=== PATIENT | male | born 1985 | race Two or more races ===

== ENCOUNTER 2024-04-08 08:12 | Inpatient (IN) | payer OTHER ==
[2024-04-08 09:15] LABS: BASO % 0.7 % (0-2.0); EOS % 0.1 % (0-4.5); HEMATOCRIT 36.8 % (35.4-49); LYMPH % 12.2 % (8-40); MCH 27.3 pg (25.7-33.7); MCHC 27.2 g/dl (32.0-35.9); MEAN CELL VOLUME 100.5 fl (80-96); MONO % 8.7 % (3.8-10.2); NEUT % 78.3 % (42.8-82.8); PLATELET COUNT 232 10^3/uL (134-434); RBC 3.66 M/mm3 (4.00-5.60); RDW 17.7 % (11.9-15.9); WHITE BLOOD COUNT 9.8 K/mm3 (4.0-10.0)
[2024-04-08 09:16] LABS: VENOUS BASE EXCESS -30.5 mmol/L (-2-2); VENOUS O2 SATURATION 79.3 % (70-80); VENOUS PCO2 31.9 mmHg (38-52)
[2024-04-08 09:21] LABS: VENOUS PH 6.744 (7.310-7.410)
[2024-04-08 09:45] LABS: LACTIC ACID 2.2 mmol/L (0.4-2.0)
[2024-04-08 09:46] LABS: CHLORIDE 98 mmol/L (98-107); SODIUM 122 mmol/L (136-145)
[2024-04-08] MEDS ORDERED: ACETAMINOPHEN INJECTION 0 ML ONE (09:46)
[2024-04-08 09:48] LABS: ALBUMIN 3.4 g/dl (3.4-5.0); ANION GAP 19 mmol/L (4-13); BLOOD UREA NITROGEN 94.6 mg/dL (7-18); CALCIUM 8.1 mg/dL (8.5-10.1); CO2 6 mmol/L (21-32); MAGNESIUM 3.1 mg/dL (1.8-2.4); POTASSIUM 6.9 mmol/L (3.5-5.1)
[2024-04-08 09:51] LABS: SGOT/AST 12 U/L (15-37); SGPT/ALT 27 U/L (13-61)
[2024-04-08 09:52] LABS: CREATININE 17.3 mg/dL (0.55-1.3)
[2024-04-08 09:53] LABS: BILIRUBIN,TOTAL 0.5 mg/dL (0.2-1); TOT PROT 6.6 g/dl (6.4-8.2)
[2024-04-08 09:54] LABS: ALK PHOS 204 U/L (45-117)
[2024-04-08 09:57] LABS: GLUCOSE,RANDOM 1366 mg/dL (74-106)
[2024-04-08] MEDS ORDERED: CALCIUM GLUCONATE 10% - 1,000 MG/10 ML VIAL ONE (10:05)
[2024-04-08] MEDS ORDERED: SODIUM BICARBONATE 8.4% 50 MEQ/50 ML DISP.SYRIN ONE (10:05)
[2024-04-08] MEDS ORDERED: ALBUTEROL SO4 0.083% IH SOL 2.5 MG/3 ML VIAL.NEB. NEB ONE (10:05)
[2024-04-08] MEDS ORDERED: INSULIN REGULAR HUMAN 100 UNITS/ML *VIAL ONE (10:06)
[2024-04-08] MEDS: ALBUTEROL SO4 0.083% IH SOL 2.5 MG/3 ML VIAL.NEB. NEB SCH (10:22)
[2024-04-08] MEDS: CALCIUM GLUCONATE 10% - 1,000 MG/10 ML VIAL IVPB ONE (10:22)
[2024-04-08] MEDS: SODIUM BICARBONATE 8.4% 50 MEQ/50 ML DISP.SYRIN IVPUSH ONE ×2 (10:22→14:58)
[2024-04-08] MEDS: INSULIN REGULAR HUMAN 100 UNITS/ML *VIAL IVPUSH ONE (10:22)
[2024-04-08] MEDS ORDERED: VANCOMYCIN 1 GRAM (PRE-DOCKED) 0 MG/0 ML BAG IVPB ONE (10:32)
[2024-04-08] MEDS ORDERED: VANCOMYCIN 1 GRAM (PRE-DOCKED) 1,000 MG/250 ML BAG IVPB ONE (10:43)
[2024-04-08 11:01] LABS: PHOSPHOROUS 9.6 mg/dL (2.5-4.9)
[2024-04-08] MEDS: INSULIN REGULAR 100 UNITS in SODIUM CHLORIDE 99 ML IVPB SCH (11:15)
[2024-04-08] MEDS ORDERED: SODIUM CHLORIDE 250 ML IV PRN (11:16)
[2024-04-08] MEDS: GENTAMICIN INJECTION 200 MG in DEXTROSE 5%-WATER - 250 ML IVPB ONE (11:25)
[2024-04-08] MEDS ORDERED: DEXTROSE 50%-WATER - 25 GM/50 ML VIAL IVPUSH PRN (11:27)
[2024-04-08] MEDS ORDERED: INSULIN REGULAR 100 UNITS in SODIUM CHLORIDE 99 ML IVPB SCH (11:30)
[2024-04-08] MEDS: SODIUM CHLORIDE 1,000 ML IV SCH (13:00)
[2024-04-08] MEDS ORDERED: DOPAMINE 400 MG/D5W - 400,000 MCG/250 ML INFUS.BAG IVPB ONE (13:02)
[2024-04-08] MEDS: DOPAMINE 400 MG/D5W - 400,000 MCG/250 ML INFUS.BAG IVPB SCH (13:15)
[2024-04-08 13:44] LABS: HEMATOCRIT 33.9 % (35.4-49); HEMOGLOBIN 9.4 GM/dL (11.7-16.9); MCH 27.2 pg (25.7-33.7); MCHC 27.8 g/dl (32.0-35.9); MEAN CELL VOLUME 97.9 fl (80-96); MEAN PLT VOLUME 9.6 fl (7.5-11.1); PLATELET COUNT 215 10^3/uL (134-434); RBC 3.47 M/mm3 (4.00-5.60); RDW 17.3 % (11.9-15.9); WHITE BLOOD COUNT 11.7 K/mm3 (4.0-10.0)
[2024-04-08 13:50] LABS: INR 1.26 (0.83-1.09); PROTHROMBIN TIME (PATIENT) 14.4 SEC (9.7-13.0)
[2024-04-08 13:53] LABS: ACTIVATED PTT 25.5 SECONDS (25.2-36.5)
[2024-04-08 14:03] LABS: CHLORIDE 99 mmol/L (98-107); SODIUM 126 mmol/L (136-145)
[2024-04-08 14:06] LABS: LACTIC ACID 5.6 mmol/L (0.4-2.0)
[2024-04-08 14:07] LABS: ALBUMIN 3.3 g/dl (3.4-5.0); ANION GAP 22 mmol/L (4-13); BLOOD UREA NITROGEN 97.6 mg/dL (7-18); CALCIUM 8.1 mg/dL (8.5-10.1); CO2 6 mmol/L (21-32)
[2024-04-08 14:08] LABS: MAGNESIUM 3.1 mg/dL (1.8-2.4)
[2024-04-08 14:11] LABS: SGOT/AST 14 U/L (15-37); SGPT/ALT 26 U/L (13-61)
[2024-04-08 14:12] LABS: BILIRUBIN,TOTAL 0.5 mg/dL (0.2-1); TOT PROT 6.4 g/dl (6.4-8.2)
[2024-04-08 14:13] LABS: ALK PHOS 198 U/L (45-117)
[2024-04-08 14:15] LABS: CREATININE 17.3 mg/dL (0.55-1.3)
[2024-04-08 14:31] LABS: GLUCOSE,RANDOM 1284 mg/dL (74-106)
[2024-04-08] MEDS: HEPARIN NA (PORCINE) 5,000 UNITS/ML 1ML VIAL SQ SCH (18:27)
[2024-04-08 20:09] LABS: CHLORIDE 108 mmol/L (98-107); SODIUM 139 mmol/L (136-145)
[2024-04-08 20:11] LABS: CALCIUM 7.6 mg/dL (8.5-10.1)
[2024-04-08 20:12] LABS: ALBUMIN 3.1 g/dl (3.4-5.0); CO2 16 mmol/L (21-32); MAGNESIUM 2.2 mg/dL (1.8-2.4)
[2024-04-08 20:15] LABS: PHOSPHOROUS 3.4 mg/dL (2.5-4.9); SGOT/AST 21 U/L (15-37); SGPT/ALT 24 U/L (13-61)
[2024-04-08 20:17] LABS: BILIRUBIN,TOTAL 0.5 mg/dL (0.2-1); TOT PROT 5.7 g/dl (6.4-8.2)
[2024-04-08 20:18] LABS: ALK PHOS 173 U/L (45-117)
[2024-04-08 20:20] LABS: ANION GAP 15 mmol/L (4-13); BLOOD UREA NITROGEN 49.8 mg/dL (7-18); CREATININE 10.2 mg/dL (0.55-1.3); GLUCOSE,RANDOM 638 mg/dL (74-106); POTASSIUM 2.3 mmol/L (3.5-5.1)
[2024-04-08 20:25] LABS: LACTIC ACID 6.7 mmol/L (0.4-2.0)
[2024-04-08 20:26] LABS: ARTERIAL BLD GAS O2 SATURATION 82.9 % (95-98); ARTERIAL BLOOD GAS BASE EXCESS -10.3 mmol/L (-2-2); ARTERIAL BLOOD GAS PO2 53.2 mmHg (80-100); ARTERIAL BLOOD GAS pH 7.258 (7.350-7.450)
[2024-04-08 20:27] LABS: ALLENS TEST POSITIVE
[2024-04-08] MEDS: VANCOMYCIN/WATER FOR INJ (PEG) 1,000 MG/200 ML BAG IVPB ONE (20:40)
[2024-04-08] MEDS: SODIUM BICARBONATE 4.2% 5 MEQ/10 ML DISP.SYRIN IVPUSH ONE (20:40)
[2024-04-08] MEDS: POTASSIUM CHLORIDE ORAL LIQUID 20 MEQ/15 ML PO ONE (20:55)
[2024-04-08] MEDS: KCL 10 MEQ IVPB 10 MEQ/100 ML INFUS.BAG IVPB SCH (20:55)
[2024-04-08] MEDS: CHLORHEXIDINE GLUCONATE 4% CLEANSER FOR DECOLONIZATION TP SCH (21:08)
[2024-04-08] MEDS: MUPIROCIN 2% TOPICAL OINTMENT FOR DECOLONIZATION NS SCH (21:08)
[2024-04-08] MEDS: SODIUM CHLORIDE 0.45%/POT 20 MEQ/1,000 ML INFUS.BAG IV SCH (21:57)
[2024-04-08] MEDS ORDERED: POTASSIUM CHLORIDE ORAL LIQUID 20 MEQ/15 ML PO SCH (22:00)
[2024-04-08] MEDS: SODIUM CHLORIDE 0.9%/KCL 20 MEQ/1,000 ML INFUS.BAG IV SCH (23:17)
[2024-04-09 03:07] LABS: CHLORIDE 110 mmol/L (98-107); SODIUM 132 mmol/L (136-145)
[2024-04-09 03:09] LABS: BLOOD UREA NITROGEN 40.7 mg/dL (7-18); CO2 16 mmol/L (21-32); GLUCOSE,RANDOM 316 mg/dL (74-106)
[2024-04-09 03:12] LABS: SGPT/ALT 18 U/L (13-61)
[2024-04-09 03:13] LABS: SGOT/AST 18 U/L (15-37)
[2024-04-09 03:14] LABS: BILIRUBIN,TOTAL 0.3 mg/dL (0.2-1); TOT PROT 4.3 g/dl (6.4-8.2)
[2024-04-09 03:21] LABS: ALBUMIN 2.3 g/dl (3.4-5.0); ALK PHOS 125 U/L (45-117); ANION GAP 6 mmol/L (4-13); CALCIUM 6.2 mg/dL (8.5-10.1); CREATININE 8.1 mg/dL (0.55-1.3); POTASSIUM 6.5 mmol/L (3.5-5.1)
[2024-04-09] MEDS: SODIUM CHLORIDE 0.45%/POT 20 MEQ/1,000 ML INFUS.BAG IV SCH (04:00)
[2024-04-09 04:11] LABS: CHLORIDE 112 mmol/L (98-107); SODIUM 142 mmol/L (136-145)
[2024-04-09 04:14] LABS: BLOOD UREA NITROGEN 49.4 mg/dL (7-18); CO2 19 mmol/L (21-32); GLUCOSE,RANDOM 334 mg/dL (74-106)
[2024-04-09 04:17] LABS: SGOT/AST 21 U/L (15-37); SGPT/ALT 22 U/L (13-61)
[2024-04-09 04:18] LABS: BILIRUBIN,TOTAL 0.4 mg/dL (0.2-1); TOT PROT 5.3 g/dl (6.4-8.2)
[2024-04-09 04:20] LABS: ALK PHOS 154 U/L (45-117)
[2024-04-09 04:22] LABS: ALBUMIN 2.8 g/dl (3.4-5.0); ANION GAP 10 mmol/L (4-13); CALCIUM 7.8 mg/dL (8.5-10.1); CREATININE 10.4 mg/dL (0.55-1.3); POTASSIUM 2.8 mmol/L (3.5-5.1)
[2024-04-09] MEDS: CALCIUM GLUCONATE IN NACL 1 GM/50 ML BAG IVPB ONE (04:31)
[2024-04-09] MEDS: KCL 10 MEQ IVPB 10 MEQ/100 ML INFUS.BAG IVPB SCH (04:48)
[2024-04-09] MEDS: SODIUM CHLORIDE 0.45% 1,000 ML IV SCH (04:49)
[2024-04-09 06:56] LABS: CHLORIDE 114 mmol/L (98-107); SODIUM 142 mmol/L (136-145)
[2024-04-09 07:01] LABS: ALBUMIN 2.7 g/dl (3.4-5.0); ANION GAP 9 mmol/L (4-13); CALCIUM 7.4 mg/dL (8.5-10.1); CO2 19 mmol/L (21-32)
[2024-04-09 07:02] LABS: BLOOD UREA NITROGEN 48.7 mg/dL (7-18); GLUCOSE,RANDOM 202 mg/dL (74-106); MAGNESIUM 1.9 mg/dL (1.8-2.4)
[2024-04-09 07:04] LABS: SGPT/ALT 24 U/L (13-61)
[2024-04-09 07:05] LABS: PHOSPHOROUS 2.8 mg/dL (2.5-4.9); SGOT/AST 21 U/L (15-37)
[2024-04-09 07:06] LABS: BILIRUBIN,TOTAL 0.4 mg/dL (0.2-1); TOT PROT 5.1 g/dl (6.4-8.2)
[2024-04-09 07:07] LABS: ALK PHOS 150 U/L (45-117)
[2024-04-09 07:12] LABS: CREATININE 10.3 mg/dL (0.55-1.3)
[2024-04-09 09:18] LABS: CHLORIDE 114 mmol/L (98-107); POTASSIUM 3.3 mmol/L (3.5-5.1); SODIUM 142 mmol/L (136-145)
[2024-04-09 09:21] LABS: ANION GAP 8 mmol/L (4-13); CALCIUM 7.5 mg/dL (8.5-10.1); CO2 19 mmol/L (21-32)
[2024-04-09 09:22] LABS: BLOOD UREA NITROGEN 46.8 mg/dL (7-18); GLUCOSE,RANDOM 153 mg/dL (74-106)
[2024-04-09 09:26] LABS: CREATININE 10.3 mg/dL (0.55-1.3)
[2024-04-09 09:53] LABS: HEMATOCRIT 25.8 % (35.4-49); HEMOGLOBIN 8.7 GM/dL (11.7-16.9); MCH 27.7 pg (25.7-33.7); MCHC 33.7 g/dl (32.0-35.9); MEAN CELL VOLUME 82.3 fl (80-96); MEAN PLT VOLUME 8.4 fl (7.5-11.1); PLATELET COUNT 154 10^3/uL (134-434); RBC 3.13 M/mm3 (4.00-5.60); RDW 15.6 % (11.9-15.9); WHITE BLOOD COUNT 9.1 K/mm3 (4.0-10.0)
[2024-04-09] MEDS ORDERED: INSULIN ASPART SLIDING SCALE (NOVOLOG) 1 VIAL SQ SCH (11:00)
[2024-04-09] MEDS: LOPERAMIDE HCL 2 MG CAPSULE PO ONE (16:12)
[2024-04-09] MEDS: INSULIN ASPART SLIDING SCALE (NOVOLOG) 1 VIAL SQ SCH (16:15)
[2024-04-09] MEDS: INSULIN (LEVEMIR) 100 UNITS/ML UNITS SQ SCH (22:46)
[2024-04-10] MEDS: SODIUM CHLORIDE 0.45%/POT 20 MEQ/1,000 ML INFUS.BAG IV SCH (02:31)
[2024-04-10] MEDS: HEPARIN NA (PORCINE) 5,000 UNITS/ML 1ML VIAL SQ SCH (06:05)
[2024-04-10] MEDS: INSULIN ASPART SLIDING SCALE (NOVOLOG) 1 VIAL SQ SCH ×2 (06:13→16:27)
[2024-04-10] MEDS: INSULIN (LEVEMIR) 100 UNITS/ML UNITS SQ SCH (06:59)
[2024-04-10 07:32] LABS: HEMATOCRIT 27.4 % (35.4-49); HEMOGLOBIN 9.3 GM/dL (11.7-16.9); MCH 28.3 pg (25.7-33.7); MCHC 33.9 g/dl (32.0-35.9); MEAN CELL VOLUME 83.5 fl (80-96); MEAN PLT VOLUME 8.7 fl (7.5-11.1); PLATELET COUNT 140 10^3/uL (134-434); RBC 3.29 M/mm3 (4.00-5.60); WHITE BLOOD COUNT 9.3 K/mm3 (4.0-10.0)
[2024-04-10 07:51] LABS: CHLORIDE 114 mmol/L (98-107); POTASSIUM 4.8 mmol/L (3.5-5.1); SODIUM 136 mmol/L (136-145)
[2024-04-10 07:58] LABS: ALBUMIN 2.7 g/dl (3.4-5.0); BLOOD UREA NITROGEN 55.8 mg/dL (7-18); SGOT/AST 20 U/L (15-37); SGPT/ALT 22 U/L (13-61)
[2024-04-10 07:59] LABS: ANION GAP 8 mmol/L (4-13); CALCIUM 7.2 mg/dL (8.5-10.1); CO2 14 mmol/L (21-32); GLUCOSE,RANDOM 111 mg/dL (74-106); MAGNESIUM 1.8 mg/dL (1.8-2.4)
[2024-04-10 08:00] LABS: BILIRUBIN,TOTAL 0.4 mg/dL (0.2-1); TOT PROT 5.2 g/dl (6.4-8.2)
[2024-04-10 08:01] LABS: ALK PHOS 139 U/L (45-117)
[2024-04-10 08:02] LABS: PHOSPHOROUS 3.7 mg/dL (2.5-4.9)
[2024-04-10 08:09] LABS: CREATININE 11.2 mg/dL (0.55-1.3)
[2024-04-10] MEDS ORDERED: MUPIROCIN 2% TOPICAL OINTMENT FOR DECOLONIZATION NS SCH (10:00)
[2024-04-10] MEDS ORDERED: SODIUM CHLORIDE 250 ML IV PRN (10:00)
[2024-04-10] MEDS ORDERED: NIFEdipine E.R 60 MG TABLET PO SCH (10:00)
[2024-04-10] MEDS: NIFEdipine E.R 60 MG TABLET PO SCH (10:10)
[2024-04-10] MEDS: EPOETIN ALFA-EPBX 10,000 UNIT/ML VIAL IVPUSH ONE (10:19)
[2024-04-10] MEDS: DEXTROSE 50%-WATER 25 GM/50 ML DISP.SYRIN IVPUSH PRN (10:30)
[2024-04-10] MEDS: DEXTROSE 5%-0.45% SALINE 1,000 ML IV SCH (11:17)
[2024-04-10] MEDS: LABETALOL HCL 100 MG TABLET (FP) PO SCH (11:18)
[2024-04-10] MEDS: VANCOMYCIN ORAL SOLUTION 125 MG/2.5 ML PO SCH (17:43)
[2024-04-10] MEDS ORDERED: CHLORHEXIDINE GLUCONATE 4% CLEANSER FOR DECOLONIZATION TP SCH (22:00)
[2024-04-11] MEDS: hydrALAZINE HCL 20 MG/ML VIAL IVPB ONE (05:52)
[2024-04-11] MEDS ORDERED: LABETALOL HCL 100 MG TABLET (FP) PO SCH (07:46)
[2024-04-11 07:47] LABS: HEMATOCRIT 27.6 % (35.4-49); HEMOGLOBIN 8.6 GM/dL (11.7-16.9); MCH 27.3 pg (25.7-33.7); MCHC 31.3 g/dl (32.0-35.9); MEAN CELL VOLUME 87.3 fl (80-96); MEAN PLT VOLUME 9.1 fl (7.5-11.1); PLATELET COUNT 104 10^3/uL (134-434); RBC 3.17 M/mm3 (4.00-5.60); RDW 16.3 % (11.9-15.9); WHITE BLOOD COUNT 5.9 K/mm3 (4.0-10.0)
[2024-04-11 07:59] LABS: CHLORIDE 98 mmol/L (98-107); POTASSIUM 4.2 mmol/L (3.5-5.1); SODIUM 130 mmol/L (136-145)
[2024-04-11 08:02] LABS: CALCIUM 7.3 mg/dL (8.5-10.1)
[2024-04-11 08:03] LABS: ALBUMIN 2.8 g/dl (3.4-5.0); ANION GAP 18 mmol/L (4-13); BLOOD UREA NITROGEN 46.8 mg/dL (7-18); CO2 13 mmol/L (21-32)
[2024-04-11 08:06] LABS: SGOT/AST 21 U/L (15-37); SGPT/ALT 26 U/L (13-61)
[2024-04-11 08:08] LABS: ALK PHOS 159 U/L (45-117); BILIRUBIN,TOTAL 0.6 mg/dL (0.2-1); TOT PROT 5.6 g/dl (6.4-8.2)
[2024-04-11] MEDS: INSULIN (LEVEMIR) 100 UNITS/ML UNITS SQ ONE (08:17)
[2024-04-11] MEDS: LABETALOL HCL 200 MG TABLET (FP) PO ONE (08:18)
[2024-04-11] MEDS: NIFEdipine E.R 60 MG TABLET PO ONE (08:18)
[2024-04-11 08:28] LABS: CREATININE 8.4 mg/dL (0.55-1.3); GLUCOSE,RANDOM 661 mg/dL (74-106)
[2024-04-11] MEDS ORDERED: INSULIN (LEVEMIR) 100 UNITS/ML UNITS SQ SCH (10:00)
[2024-04-11 10:40] LABS: CALCIUM 7.3 mg/dL (8.5-10.1); CHLORIDE 100 mmol/L (98-107); POTASSIUM 3.9 mmol/L (3.5-5.1); SODIUM 130 mmol/L (136-145)
[2024-04-11 10:41] LABS: ANION GAP 12 mmol/L (4-13); BLOOD UREA NITROGEN 51.2 mg/dL (7-18); CO2 18 mmol/L (21-32)
[2024-04-11] MEDS: SODIUM CHLORIDE 1,000 ML IV STA (10:46)
[2024-04-11] MEDS: NIFEdipine E.R 60 MG TABLET PO SCH (10:47)
[2024-04-11] MEDS: INSULIN REGULAR HUMAN 100 UNITS/ML *VIAL IVPUSH ONE (10:48)
[2024-04-11 10:56] LABS: CREATININE 8.8 mg/dL (0.55-1.3); GLUCOSE,RANDOM 560 mg/dL (74-106)
[2024-04-11] MEDS: SODIUM CHLORIDE 1,000 ML IV SCH (11:53)
[2024-04-11] MEDS: INSULIN (NOVOLOG) ASPART 100 UNITS/ML 10ML VIAL SQ ONE (12:16)
[2024-04-11 13:28] LABS: PHOSPHOROUS 3.2 mg/dL (2.5-4.9)
[2024-04-11 16:15] LABS: CALCIUM 7.2 mg/dL (8.5-10.1); CHLORIDE 105 mmol/L (98-107); POTASSIUM 3.5 mmol/L (3.5-5.1); SODIUM 133 mmol/L (136-145)
[2024-04-11 16:16] LABS: ANION GAP 9 mmol/L (4-13); BLOOD UREA NITROGEN 50.6 mg/dL (7-18); CO2 19 mmol/L (21-32); GLUCOSE,RANDOM 205 mg/dL (74-106)
[2024-04-11 16:20] LABS: CREATININE 9.2 mg/dL (0.55-1.3)
[2024-04-11] MEDS: LABETALOL HCL 100 MG TABLET (FP) PO SCH (21:31)
[2024-04-12] MEDS: INSULIN (LEVEMIR) 100 UNITS/ML UNITS SQ SCH (06:28)
[2024-04-12 07:23] LABS: BASO % 0.9 % (0-2.0); EOS % 5.7 % (0-4.5); HEMATOCRIT 25.9 % (35.4-49); HEMOGLOBIN 8.4 GM/dL (11.7-16.9); LYMPH % 21.9 % (8-40); MCH 27.5 pg (25.7-33.7); MCHC 32.5 g/dl (32.0-35.9); MEAN CELL VOLUME 84.5 fl (80-96); MEAN PLT VOLUME 8.2 fl (7.5-11.1); MONO % 8.8 % (3.8-10.2); NEUT % 62.7 % (42.8-82.8); PLATELET COUNT 116 10^3/uL (134-434); RBC 3.06 M/mm3 (4.00-5.60); RDW 16.1 % (11.9-15.9); WHITE BLOOD COUNT 7.3 K/mm3 (4.0-10.0)
[2024-04-12 07:30] LABS: CHLORIDE 104 mmol/L (98-107); POTASSIUM 4.1 mmol/L (3.5-5.1); SODIUM 131 mmol/L (136-145)
[2024-04-12 07:34] LABS: ALBUMIN 2.7 g/dl (3.4-5.0); ANION GAP 12 mmol/L (4-13); BLOOD UREA NITROGEN 57.7 mg/dL (7-18); CALCIUM 7.4 mg/dL (8.5-10.1); CO2 15 mmol/L (21-32); GLUCOSE,RANDOM 287 mg/dL (74-106); MAGNESIUM 1.9 mg/dL (1.8-2.4)
[2024-04-12 07:37] LABS: PHOSPHOROUS 3.1 mg/dL (2.5-4.9); SGOT/AST 19 U/L (15-37); SGPT/ALT 21 U/L (13-61)
[2024-04-12 07:39] LABS: TOT PROT 5.3 g/dl (6.4-8.2)
[2024-04-12 07:41] LABS: ALK PHOS 139 U/L (45-117); BILIRUBIN,TOTAL 0.7 mg/dL (0.2-1)
[2024-04-12 08:14] LABS: CREATININE 9.9 mg/dL (0.55-1.3)
[2024-04-12] MEDS ORDERED: NIFEdipine E.R 60 MG TABLET PO SCH (10:00)
[2024-04-12] MEDS: ATORVASTATIN CA 40 MG TABLET (FP) PO SCH (21:14)
[2024-04-13] MEDS ORDERED: SODIUM CHLORIDE 250 ML IV PRN (15:02)
[2024-04-13] MEDS: HEPARIN NA (PORCINE) 5,000 UNITS/ML 1ML VIAL IVPUSH ONE (15:20)
[2024-04-13 15:54] LABS: HEMATOCRIT 26.5 % (35.4-49); HEMOGLOBIN 8.5 GM/dL (11.7-16.9); MCH 26.7 pg (25.7-33.7); MEAN CELL VOLUME 83.4 fl (80-96); PLATELET COUNT 189 10^3/uL (134-434); RBC 3.17 M/mm3 (4.00-5.60); RDW 16.2 % (11.9-15.9)
[2024-04-13 16:15] LABS: CHLORIDE 107 mmol/L (98-107); POTASSIUM 4.1 mmol/L (3.5-5.1); SODIUM 132 mmol/L (136-145)
[2024-04-13 16:16] LABS: CALCIUM 7.5 mg/dL (8.5-10.1)
[2024-04-13] MEDS: EPOETIN ALFA-EPBX 10,000 UNIT/ML VIAL SQ ONE (16:16)
[2024-04-13 16:17] LABS: ANION GAP 11 mmol/L (4-13); BLOOD UREA NITROGEN 67.7 mg/dL (7-18); CO2 15 mmol/L (21-32); GLUCOSE,RANDOM 177 mg/dL (74-106)
[2024-04-13 16:31] LABS: CREATININE 12.2 mg/dL (0.55-1.3)
[2024-04-13] MEDS: LACTOBACILLUS ACIDOPHILUS 1 TABLET PO SCH ×2 (19:05→21:58)
[2024-04-13 22:08] VITALS: BMI 21.4
[2024-04-13] MEDS: HEPARIN NA (PORCINE) 5,000 UNITS/ML 1ML VIAL SQ SCH (22:59)
[2024-04-14] MEDS: hydrALAZINE HCL 20 MG/ML VIAL IVPUSH ONE (03:18)
[2024-04-14] MEDS: BANATROL PLUS POWDER PACKET PO SCH ×2 (07:11→21:44)
[2024-04-14 08:03] LABS: CHLORIDE 105 mmol/L (98-107); POTASSIUM 3.9 mmol/L (3.5-5.1); SODIUM 135 mmol/L (136-145)
[2024-04-14 08:06] LABS: HEMATOCRIT 27.6 % (35.4-49); HEMOGLOBIN 8.9 GM/dL (11.7-16.9); MCH 27.5 pg (25.7-33.7); MCHC 32.3 g/dl (32.0-35.9); MEAN CELL VOLUME 85.4 fl (80-96); PLATELET COUNT 190 10^3/uL (134-434); RBC 3.24 M/mm3 (4.00-5.60); RDW 15.6 % (11.9-15.9); WHITE BLOOD COUNT 7.3 K/mm3 (4.0-10.0)
[2024-04-14 08:09] LABS: ANION GAP 13 mmol/L (4-13); CALCIUM 7.7 mg/dL (8.5-10.1); CO2 17 mmol/L (21-32)
[2024-04-14 08:32] LABS: BLOOD UREA NITROGEN 35.2 mg/dL (7-18); CREATININE 7.8 mg/dL (0.55-1.3); GLUCOSE,RANDOM 433 mg/dL (74-106)
[2024-04-14] MEDS: LABETALOL HCL 100 MG TABLET (FP) PO SCH (11:30)
[2024-04-14] MEDS: INSULIN (LEVEMIR) 100 UNITS/ML UNITS SQ SCH (11:58)
[2024-04-14] MEDS ORDERED: SODIUM CHLORIDE 250 ML IV PRN (15:05)
[2024-04-14] MEDS: INSULIN ASPART SLIDING SCALE (NOVOLOG) 1 VIAL SQ SCH (16:35)
[2024-04-14] MEDS: LACTOBACILLUS ACIDOPHILUS 1 TABLET PO SCH (21:43)
[2024-04-14] MEDS: ATORVASTATIN CA 40 MG TABLET (FP) PO SCH (21:44)
[2024-04-14] MEDS: HEPARIN NA (PORCINE) 5,000 UNITS/ML 1ML VIAL SQ SCH (21:44)
[2024-04-14] MEDS: NIFEdipine E.R 60 MG TABLET PO SCH (21:44)
[2024-04-15 10:04] LABS: HEMATOCRIT 27.2 % (35.4-49); HEMOGLOBIN 8.7 GM/dL (11.7-16.9); MCH 27.3 pg (25.7-33.7); MCHC 32.2 g/dl (32.0-35.9); MEAN CELL VOLUME 84.7 fl (80-96); MEAN PLT VOLUME 9.1 fl (7.5-11.1); PLATELET COUNT 244 10^3/uL (134-434); RBC 3.21 M/mm3 (4.00-5.60); RDW 15.8 % (11.9-15.9); WHITE BLOOD COUNT 7.5 K/mm3 (4.0-10.0)
[2024-04-15 10:20] LABS: CHLORIDE 105 mmol/L (98-107); POTASSIUM 4.2 mmol/L (3.5-5.1); SODIUM 133 mmol/L (136-145)
[2024-04-15 10:23] LABS: CALCIUM 8.1 mg/dL (8.5-10.1)
[2024-04-15 10:24] LABS: ANION GAP 13 mmol/L (4-13); BLOOD UREA NITROGEN 41.4 mg/dL (7-18); CO2 16 mmol/L (21-32); GLUCOSE,RANDOM 266 mg/dL (74-106)
[2024-04-15 11:02] LABS: CREATININE 9.5 mg/dL (0.55-1.3)
[2024-04-15] MEDS: EPOETIN ALFA-EPBX 10,000 UNIT/ML VIAL SQ ONE (11:06)
[2024-04-15] MEDS: HEPARIN NA (PORCINE) 5,000 UNITS/ML 1ML VIAL IVPUSH ONE (11:33)
[2024-04-15] MEDS: HEPARIN NA (PORCINE) 5,000 UNITS/ML 1ML VIAL SQ SCH (12:00)
[2024-04-15] MEDS: INSULIN (NOVOLOG) ASPART 100 UNITS/ML 10ML VIAL SQ ONE (23:37)
[2024-04-16] MEDS ORDERED: REGADENOSON 0.4 MG/5 ML PRE-FILLED SYRINGE IVPUSH ONE (08:16)
[2024-04-16] MEDS: REGADENOSON 0.4 MG/5 ML PRE-FILLED SYRINGE IVPUSH ONE (09:12)
[2024-04-16 11:54] LABS: HEMATOCRIT 29.4 % (35.4-49); HEMOGLOBIN 9.5 GM/dL (11.7-16.9); MCHC 32.3 g/dl (32.0-35.9); MEAN CELL VOLUME 83.7 fl (80-96); MEAN PLT VOLUME 8.2 fl (7.5-11.1); PLATELET COUNT 258 10^3/uL (134-434); RBC 3.52 M/mm3 (4.00-5.60); RDW 16.1 % (11.9-15.9); WHITE BLOOD COUNT 5.3 K/mm3 (4.0-10.0)
[2024-04-16 12:20] LABS: POTASSIUM 3.5 mmol/L (3.5-5.1)
[2024-04-16 12:22] LABS: ALBUMIN 2.8 g/dl (3.4-5.0)
[2024-04-16 12:23] LABS: BLOOD UREA NITROGEN 26.2 mg/dL (7-18)
[2024-04-16 12:26] LABS: CREATININE 7.2 mg/dL (0.55-1.3)
[2024-04-16 12:27] LABS: BILIRUBIN,TOTAL 0.6 mg/dL (0.2-1); TOT PROT 5.6 g/dl (6.4-8.2)
[2024-04-16 13:29] VITALS: RESP 18
[2024-04-17 09:37] LABS: HEMOGLOBIN 9.2 GM/dL (11.7-16.9); MCH 27.8 pg (25.7-33.7); MCHC 32.7 g/dl (32.0-35.9); MEAN CELL VOLUME 85.1 fl (80-96); MEAN PLT VOLUME 8.9 fl (7.5-11.1); PLATELET COUNT 288 10^3/uL (134-434); RBC 3.29 M/mm3 (4.00-5.60); RDW 16.6 % (11.9-15.9); WHITE BLOOD COUNT 6.1 K/mm3 (4.0-10.0)
[2024-04-17 09:51] LABS: CHLORIDE 104 mmol/L (98-107); POTASSIUM 4.3 mmol/L (3.5-5.1); SODIUM 131 mmol/L (136-145)
[2024-04-17 10:00] LABS: ANION GAP 13 mmol/L (4-13); BLOOD UREA NITROGEN 39.6 mg/dL (7-18); CO2 14 mmol/L (21-32); GLUCOSE,RANDOM 395 mg/dL (74-106)
[2024-04-17] MEDS ORDERED: SODIUM CHLORIDE 250 ML IV PRN (10:00)
[2024-04-17 10:14] LABS: CREATININE 9.5 mg/dL (0.55-1.3)
[2024-04-17] MEDS: EPOETIN ALFA-EPBX 10,000 UNIT/ML VIAL SQ ONE (10:42)
[2024-04-17 14:27] VITALS: BP 156/91; PULSE 68; TEMP 97.7
== END 2024-04-17 18:58 | disposition home or self-care (01) | DRG 420 ==
LOC: JER 08:12 → JERBED 10:06 → JICU 11:37 → J4W 04-09 21:24 → J6S 04-14 13:10
PROVIDERS: ADMIT Internal Medicine; ATTEND Internal Medicine
PROC: 5A1D70Z Performance of Urinary Filtration, Intermittent, Less than 6 Hours Per Day (ICD-10-PCS; principal; 2024-04-08)
PROC: 5A1D70Z Performance of Urinary Filtration, Intermittent, Less than 6 Hours Per Day (ICD-10-PCS; 2024-04-10)
PROC: 5A1D70Z Performance of Urinary Filtration, Intermittent, Less than 6 Hours Per Day (ICD-10-PCS; 2024-04-13)
PROC: 5A1D70Z Performance of Urinary Filtration, Intermittent, Less than 6 Hours Per Day (ICD-10-PCS; 2024-04-15)
PROC: 5A1D70Z Performance of Urinary Filtration, Intermittent, Less than 6 Hours Per Day (ICD-10-PCS; 2024-04-17)
DX: E10.10 Type 1 diabetes mellitus with ketoacidosis without coma (principal); G93.41 Metabolic encephalopathy; I24.89 Other forms of acute ischemic heart disease; E10.69 Type 1 diabetes mellitus with other specified complication; E10.22 Type 1 diabetes mellitus with diabetic chronic kidney disease; E87.1 Hypo-osmolality and hyponatremia; I13.2 Hypertensive heart and chronic kidney disease with heart failure and with stage 5 chronic kidney disease, or end stage renal disease; N18.6 End stage renal disease; I50.32 Chronic diastolic (congestive) heart failure; D64.9 Anemia, unspecified; R19.7 Diarrhea, unspecified; I44.1 Atrioventricular block, second degree; E87.5 Hyperkalemia; Z99.2 Dependence on renal dialysis; Z91.148 Patient's other noncompliance with medication regimen for other reason
CPT/HCPCS: 36415; 36600; 70450-TC; 71045-TC-FY; 78452-TC; 80048; 80053; 82010; 82550; 82553; 82728; 82803; 82962; 83036; 83540; 83550; 83605; 83690; 83735; 84100; 84484; 85025; 85027; 85610; 85730; 86704; 86707; 86803; 87040; 87045; 87046; 87186; 87324; 87340; 87449; 87493; 87517; 87635; 93005; 93010; 93017; 93306-TC; 97116-GP; 97162-GP; 99291; A9502; J1644; J2785; J3480; Q5106

== ENCOUNTER 2024-05-18 14:42 | Inpatient (IN) | payer OTHER ==
[2024-05-18 15:36] LABS: BASO % 0.9 % (0-2.0); HEMATOCRIT 39.1 % (35.4-49); LYMPH % 5.7 % (8-40); MCH 26.7 pg (25.7-33.7); MCHC 30.8 g/dl (32.0-35.9); MEAN CELL VOLUME 86.8 fl (80-96); MEAN PLT VOLUME 8.1 fl (7.5-11.1); MONO % 3.8 % (3.8-10.2); NEUT % 89.6 % (42.8-82.8); PLATELET COUNT 294 10^3/uL (134-434); RDW 18.5 % (11.9-15.9); WHITE BLOOD COUNT 15.3 K/mm3 (4.0-10.0)
[2024-05-18 16:05] LABS: CHLORIDE 117 mmol/L (98-107); SODIUM 140 mmol/L (136-145)
[2024-05-18 16:07] LABS: ALBUMIN 3.1 g/dl (3.4-5.0); BLOOD UREA NITROGEN 67.6 mg/dL (7-18); CO2 15 mmol/L (21-32); GLUCOSE,RANDOM 65 mg/dL (74-106)
[2024-05-18 16:10] LABS: SGOT/AST 28 U/L (15-37); SGPT/ALT 94 U/L (13-61)
[2024-05-18 16:12] LABS: BILIRUBIN,TOTAL 0.4 mg/dL (0.2-1); TOT PROT 6.7 g/dl (6.4-8.2)
[2024-05-18 16:13] LABS: ALK PHOS 238 U/L (45-117)
[2024-05-18 16:46] LABS: ANION GAP 8 mmol/L (4-13); CREATININE 14.9 mg/dL (0.55-1.3); POTASSIUM 7.8 mmol/L (3.5-5.1)
[2024-05-18] MEDS ORDERED: SODIUM CHLORIDE 250 ML IV PRN (16:47)
[2024-05-18 17:01] LABS: HIV INTERPRETATION NEGATIVE (NEGATIVE)
[2024-05-18 21:02] VITALS: BMI 21.1
[2024-05-18] MEDS: LABETALOL HCL 100 MG TABLET (FP) PO SCH (21:41)
[2024-05-18] MEDS: HEPARIN NA (PORCINE) 5,000 UNITS/ML 1ML VIAL SQ SCH (21:41)
[2024-05-19] MEDS: amLODIPine BESYLATE 5 MG TABLET (FP) PO ONE (06:51)
[2024-05-19 09:21] LABS: HEMATOCRIT 33.5 % (35.4-49); HEMOGLOBIN 10.6 GM/dL (11.7-16.9); MCH 27.3 pg (25.7-33.7); MCHC 31.6 g/dl (32.0-35.9); MEAN CELL VOLUME 86.5 fl (80-96); MEAN PLT VOLUME 8.8 fl (7.5-11.1); PLATELET COUNT 220 10^3/uL (134-434); RBC 3.88 M/mm3 (4.00-5.60); RDW 18.2 % (11.9-15.9); WHITE BLOOD COUNT 7.5 K/mm3 (4.0-10.0)
[2024-05-19 09:41] LABS: CHLORIDE 104 mmol/L (98-107); POTASSIUM 5.4 mmol/L (3.5-5.1); SODIUM 134 mmol/L (136-145)
[2024-05-19] MEDS: NIFEdipine E.R 60 MG TABLET PO SCH (09:45)
[2024-05-19 09:46] LABS: CALCIUM 7.9 mg/dL (8.5-10.1)
[2024-05-19 09:47] LABS: ALBUMIN 2.5 g/dl (3.4-5.0); ANION GAP 9 mmol/L (4-13); CO2 21 mmol/L (21-32); GLUCOSE,RANDOM 244 mg/dL (74-106); MAGNESIUM 2.4 mg/dL (1.8-2.4)
[2024-05-19 09:49] LABS: SGPT/ALT 67 U/L (13-61)
[2024-05-19 09:50] LABS: PHOSPHOROUS 4.4 mg/dL (2.5-4.9); SGOT/AST 20 U/L (15-37)
[2024-05-19 09:51] LABS: BILIRUBIN,TOTAL 0.5 mg/dL (0.2-1); TOT PROT 5.7 g/dl (6.4-8.2)
[2024-05-19 09:53] LABS: ALK PHOS 187 U/L (45-117); CREATININE 10.1 mg/dL (0.55-1.3)
[2024-05-19] MEDS: hydrALAZINE HCL 10 MG TABLET PO SCH (13:52)
[2024-05-19] MEDS: INSULIN (NOVOLOG) ASPART 100 UNITS/ML 10ML VIAL SQ ONE (14:51)
[2024-05-19] MEDS: HEPARIN NA (PORCINE) 5,000 UNITS/ML 1ML VIAL IVPUSH ONE (15:35)
[2024-05-19] MEDS ORDERED: SODIUM CHLORIDE 250 ML IV PRN (16:18)
[2024-05-19] MEDS: EPOETIN ALFA-EPBX 4,000 UNIT/ML VIAL SQ ONE (17:15)
[2024-05-19] MEDS: INSULIN ASPART SLIDING SCALE (NOVOLOG) 1 VIAL SQ SCH (18:06)
[2024-05-19] MEDS: INSULIN (LEVEMIR) 100 UNITS/ML UNITS SQ SCH (18:07)
[2024-05-19] MEDS: ATORVASTATIN CA 40 MG TABLET (FP) PO SCH (22:41)
[2024-05-20] MEDS ORDERED: DEXTROSE 50%-WATER 25 GM/50 ML DISP.SYRIN ONE ×2 (08:46→08:48)
[2024-05-20] MEDS ORDERED: INSULIN (LEVEMIR) 100 UNITS/ML UNITS SQ SCH (08:58)
[2024-05-20] MEDS: DEXTROSE 50%-WATER 25 GM/50 ML DISP.SYRIN IVPUSH ONE (11:55)
[2024-05-20] MEDS ORDERED: SODIUM CHLORIDE 250 ML IV PRN (12:01)
[2024-05-20 13:23] VITALS: BP 128/72; PULSE 70; RESP 19; TEMP 97.5
== END 2024-05-20 15:42 | disposition home or self-care (01) | DRG 425 ==
LOC: JER 14:42 → JERBED 16:57 → J5S 20:29
PROVIDERS: ADMIT Internal Medicine
PROC: 5A1D70Z Performance of Urinary Filtration, Intermittent, Less than 6 Hours Per Day (ICD-10-PCS; principal; 2024-05-18)
PROC: 5A1D70Z Performance of Urinary Filtration, Intermittent, Less than 6 Hours Per Day (ICD-10-PCS; 2024-05-19)
DX: E87.5 Hyperkalemia (principal); E87.20 Acidosis, unspecified; I24.89 Other forms of acute ischemic heart disease; I12.0 Hypertensive chronic kidney disease with stage 5 chronic kidney disease or end stage renal disease; E11.22 Type 2 diabetes mellitus with diabetic chronic kidney disease; D72.829 Elevated white blood cell count, unspecified; N18.6 End stage renal disease; D64.9 Anemia, unspecified; Z99.2 Dependence on renal dialysis
CPT/HCPCS: 36415; 71045-TC-FY; 80053; 82962; 83735; 84100; 85025; 85027; 86803; 87340; 87389; 93005; 93010; 99285-25; J1644; Q5106